=== PATIENT | female | born 1960 | race Caucasian/White ===

== ENCOUNTER 2018-09-17 07:11 | Day surgery (SDC) | payer BC ==
[~2018-09-17] VITALS: Ht 160 cm; Wt 73.5 kg
[~2018-09-17 07:11] MED LIST: AUGMENTIN875 MG OR; BIOTIN1000 MCG PO; CALCIUM D- PO; EPIPEN0.3 MG IM; MEDDOSEPAK OR; MEDDOSEPAK PO; PREMPRO1 TA1 PO; PRENATA5 PO; ULTRAM50 M1 PO; XANAX XR0.5 MG PO; ZOFRAN ODT8 MG SL
[2018-09-17 09:46] VITALS: BP 111/61
== END 2018-09-17 10:15 | disposition home or self-care (01) | DRG 745 ==
LOC: ORM 07:11
PROVIDERS: ATTEND Obstetrics & Gynecology
PROC: 0UBC7ZX Excision of Cervix, Via Natural or Artificial Opening, Diagnostic (ICD-10-PCS; principal; 2018-09-17)
DX: D06.9 Carcinoma in situ of cervix, unspecified (principal); N72 Inflammatory disease of cervix uteri
CPT/HCPCS: J0131

== ENCOUNTER 2020-01-11 08:59 | Day surgery (SDC) | payer BC ==
[~2020-01-11] VITALS: Ht 160 cm; Wt 69.0 kg
[2020-01-11 11:02] VITALS: BP 140/90
== END 2020-01-11 11:50 | disposition home or self-care (01) | DRG 951 ==
LOC: ENDO 08:59
PROVIDERS: ATTEND Surgery
PROC: 0DJD8ZZ Inspection of Lower Intestinal Tract, Via Natural or Artificial Opening Endoscopic (ICD-10-PCS; principal; 2020-01-11)
DX: Z12.11 Encounter for screening for malignant neoplasm of colon (principal); Z98.84 Bariatric surgery status; Z20.828 Contact with and (suspected) exposure to other viral communicable diseases

== ENCOUNTER 2023-05-16 18:15 | Emergency (ER) | payer BC ==
[~2023-05-16] VITALS: Ht 160 cm; Wt 71.0 kg
[2023-05-16] VITALS (9 sets, daily range): BP systolic 120–154; BP diastolic 71–88
[2023-05-16] MEDS ORDERED: AMOX/K CLAV875 M1 PO (19:45)
== END 2023-05-16 20:24 | disposition home or self-care (01) | DRG 605 ==
LOC: ED 18:15
PROC: 0HQEXZZ Repair Left Lower Arm Skin, External Approach (ICD-10-PCS; principal; 2023-05-16)
DX: S51.852A Open bite of left forearm, initial encounter (principal); W54.0XXA Bitten by dog, initial encounter